=== PATIENT | male | born 1990 ===

== ENCOUNTER 2020-01-24 11:31 | Emergency (ER) | payer SELFPAY ==
[2020-01-24] MEDS ORDERED: TETANUS,DIPHTHERIA TOXOID ADULT 0.5 ML INJ IM ONE (14:44)
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
--- NOTE | 2020-01-24 15:11 | XRay Report ---
LEFT FOOT 3 VIEWS INDICATION / CLINICAL INFORMATION: Injury with left foot pain. COMPARISON: None available. FINDINGS: BONES / JOINT(S): There are acute comminuted fractures involving the majority of the third metatarsal shaft and the distal aspect of the second metatarsal shaft. The second metatarsal fracture probably extends into the metatarsal head laterally. The fracture fragments are mildly displaced. No dislocati on. No significant arthritis. SOFT TISSUES: There is associated soft tissue swelling involving the dorsum of the foot. ADDITIONAL FINDINGS: None. IMPRESSION: Acute fractures of the left second and third metatarsals. Signer Name: Yadiel Meza MD Signed: 01/24/2020 3:07 PM Workstation Name: [id number]
[2020-01-24] MEDS ORDERED: NEOMY 3.5 MG/BACIT 400 UNITS/POLY B 5000 UNITS/GM OINT PACKET TP ONE (17:20)
[2020-01-24 18:06] VITALS: BP 131/86
== END 2020-01-24 18:14 | disposition home or self-care (01) ==
LOC: ED 11:31
DX: M77.42 Metatarsalgia, left foot (principal); Z90.49 Acquired absence of other specified parts of digestive tract; Z98.890 Other specified postprocedural states; Z79.899 Other long term (current) drug therapy
CPT/HCPCS: 29515; 73630; 90471; 90714; 99283; A6250

== ENCOUNTER 2020-02-07 09:36 | Inpatient (IN) | payer OTHER ==
[2020-02-07] MEDS ORDERED: HYDROmorphone 1 MG/1 ML INJ IV STA (10:20)
[2020-02-07] MEDS ORDERED: SODIUM CHLORIDE 0.9% 1000 ML IV SOLN IV ONE (10:20)
[2020-02-07] MEDS ORDERED: VANCOMYCIN 1,750 MG in SODIUM CHLORIDE 0.9% 500 ML 500 ML IV ONE (10:20)
[2020-02-07] MEDS ORDERED: ACETAMINOPHEN 500 MG TAB PO ONE (10:23)
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
[2020-02-07] MEDS ORDERED: PIPERACIL/TAZOBACTA 4.5/NS 100 4.5 GM/100 ML VIAL IV SCH (11:00)
[2020-02-07] MEDS ORDERED: VANCOMYCIN PHARMACY TO DOSE IV SCH (11:00)
[2020-02-07 11:13] LABS: Hematocrit 46.6 % (35.5-45.6); Hemoglobin 15.8 gm/dl (11.8-15.2); Mean Corpuscular HGB Conc 34 % (32-34); Mean Corpuscular Volume 88 fl (84-94); Platelet Count 305 K/mm3 (140-440); Red Blood Count 5.31 M/mm3 (3.65-5.03); Red Cell Distribution Width 13.6 % (13.2-15.2)
[2020-02-07] MEDS ORDERED: HYDROmorphone 1 MG/1 ML INJ IV ONE ×2 (11:13→12:28)
[2020-02-07 11:23] LABS: INR 1.24 (0.87-1.13); Partial Thromboplastin Time 27.2 Sec. (24.2-36.6)
--- NOTE | 2020-02-07 11:26 | XRay Report ---
LEFT FOREARM 2 VIEW(S) INDICATION / CLINICAL INFORMATION: left arm pain swelling COMPARISON: None available. FINDINGS: BONES / JOINT(S): No acute fracture or subluxation. No significant arthritis. SOFT TISSUES: Generalized soft tissue swelling and edema of the distal forearm and posterior to the e lbow. ADDITIONAL FINDINGS: None. Signer Name: Oliver Casanova MD Signed: 02/07/2020 11:21 AM Workstation Name: [id number]
--- NOTE | 2020-02-07 11:27 | XRay Report ---
LEFT HUMERUS 2 VIEW(S) INDICATION / CLINICAL INFORMATION: left arm pain swelling COMPARISON: None available. FINDINGS: BONES / JOINT(S): No acute fracture or subluxation. No significant arthritis. SOFT TISSUES: Generalized soft tissue swelling and edema is noted of the upper arm extending to the l evel of the elbow. ADDITIONAL FINDINGS: None. Signer Name: Oliver Casanova MD Signed: 02/07/2020 11:22 AM Workstation Name: [id number]
--- NOTE | 2020-02-07 11:27 | XRay Report ---
CHEST 1 VIEW INDICATION / CLINICAL INFORMATION: sepsis tachycardia. COMPARISON: None available. FINDINGS: SUPPORT DEVICES: None. HEART / MEDIASTINUM: No significant abnormality. LUNGS / PLEURA: No significant pulmonary or pleural abnormality. No pneumothorax. ADDITIONAL FINDINGS: No significant additional findings. IMPRESSION: 1. No acute findings. Signer Name: Oliver Casanova MD Signed: 02/07/2020 11:23 AM Workstation Name: [id number]
[2020-02-07 11:30] LABS: Bacteria,Urine 2+ /HPF (Negative); Bilirubin,Urine NEG (Negative); Blood,Urine SM (Negative); Color,Urine Yellow (Yellow); Mucus,Urine FEW /HPF
[2020-02-07 11:37] LABS: Alanine Aminotransferase 48 units/L (7-56); Albumin 3.4 g/dL (3.9-5); BUN/Creatinine Ratio 16; Blood Urea Nitrogen 13 mg/dL (9-20); Hemolysis Index 21
[2020-02-07 12:46] LABS: Band Neutrophils # (Manual) 0.6 K/mm3; Basophils % (Manual) 0 % (0.0-1.8); Eosinophils % (Manual) 0 % (0.0-4.3); Total Cells Counted 100
[2020-02-07 12:47] LABS: Platelet Estimate Consistent w Auto; RBC Morphology Normal
[2020-02-07] MEDS ORDERED: ONDANSETRON 4 MG/2 ML INJ IV PRN (12:54)
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
[2020-02-07] MEDS: SODIUM CHLORIDE 0.9% 1000 ML 1,000 ML IV SCH ×2 (14:56→22:05)
[2020-02-07] MEDS: HYDROcodone/ACETAMINOPHEN 5-325 MG TAB PO PRN ×2 (15:05→22:05)
[2020-02-07] MEDS: PIPERACIL/TAZOBACTA 4.5/NS 100 4.5 GM/100 ML VIAL IV SCH ×2 (16:47→22:04)
[2020-02-07] MEDS: ACETAMINOPHEN 325 MG TAB PO PRN ×2 (16:59→22:06)
[2020-02-08] MEDS ORDERED: VANCOMYCIN 1,250 MG in SODIUM CHLORIDE 0.9% 250ML 250 ML IV SCH
[2020-02-08] MEDS: ACETAMINOPHEN 325 MG TAB PO PRN ×2 (05:31→22:15)
[2020-02-08] MEDS: HYDROcodone/ACETAMINOPHEN 5-325 MG TAB PO PRN ×3 (05:31→22:45)
[2020-02-08] MEDS: PIPERACIL/TAZOBACTA 4.5/NS 100 4.5 GM/100 ML VIAL IV SCH ×2 (05:31→11:50)
[2020-02-08 07:29] LABS: Basophils % (Auto) 0.1 % (0.0-1.8); Eosinophils % (Auto) 0.2 % (0.0-4.3); Hematocrit 42.2 % (35.5-45.6); Lymphocytes # (Auto) 0.7 K/mm3 (1.2-5.4); Lymphocytes % (Auto) 4.4 % (13.4-35.0); Mean Corpuscular HGB Conc 33 % (32-34); Mean Corpuscular Volume 89 fl (84-94); Monocytes % (Auto) 6.3 % (0.0-7.3); Platelet Count 266 K/mm3 (140-440); Red Blood Count 4.74 M/mm3 (3.65-5.03); Red Cell Distribution Width 13.5 % (13.2-15.2)
[2020-02-08 07:45] LABS: Blood Urea Nitrogen 9 mg/dL (9-20); Calcium 8.5 mg/dL (8.4-10.2); Hemolysis Index 5
[2020-02-08 07:49] LABS: BUN/Creatinine Ratio 15
[2020-02-08] MEDS: VANCOMYCIN/NS 1 GM/250 ML 1 GM/250 ML BAG IV SCH ×2 (09:17→18:21)
[2020-02-08] MEDS ORDERED: ENOXAPARIN 40 MG/0.4 ML INJ SUB-Q SCH (10:00)
[2020-02-08] MEDS: SODIUM CHLORIDE 0.9% 1000 ML 1,000 ML IV SCH ×2 (11:51→18:59)
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
--- NOTE | 2020-02-08 14:21 | Vascular Lab Report ---
DUPLEX DOPPLER UPPER EXTREMITY VENOUS, LEFT INDICATION / CLINICAL INFORMATION: DVT. Cellulitis, sepsis TECHNIQUE: Duplex doppler imaging was performed through the veins of the left upper extremity using venous compr ession and other maneuvers. COMPARISON: Left upper extremity CT 02/07/2020 FINDINGS: LEFT INTERNAL JUGULAR VEIN: Negative. LEFT SUBCLAVIAN VEIN: Negative. LEFT AXILLARY VEIN: Negative. LEFT BRACHIAL VEIN: Negative. LEFT FOREARM VEINS: Negative. LEFT BASILIC VEIN (SUPERFICIAL): Negative. ADDITIONAL FINDINGS: 2.7 x 2.1 cm heterogeneous hyorvascular lesion proximal left forearm suggestive for phlegmon. No abscess seen on CT. Diffuse subcutaneous edema within left upper extremity character istic for cellulitis. IMPRESSION: 1. No sonographic evidence for DVT. 2. Cellulitis left upper extremity with 2.7 cm phlegmon. No drainable abscess. Signer Name: Teja Arroyo MD Signed: 02/08/2020 2:16 PM Workstation Name: [id number]
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
[2020-02-08] MEDS: MORPHINE 4 MG/1 ML INJ IV PRN (18:21)
--- NOTE | 2020-02-08 19:26 | Consultation ---
History of Present Illness - Reason for Consult Consult date: 02/08/20 cellulitis left forearm - History of Present Illness 29 year old male with 5 day hx of increasing swelling and redness of left forearm, the patient was seen in the ER and had a WBC around 20 K, he had a CT of the LUE which demonstrated cellulitis of forearm but no abcess, no gas in tissues, subsequent duplex of arm revealed swelling and edema consistent with cellulitis but no discrete abcess but question of area of phlegom but nothing to drain. The patient was seen by me around 4pm today, but he had just eaten and was on lovenox, I made the patient NPO and held the lovenox. The left forearm is warm and swollen, there is no crepitance, there is no pain with passive extension of the fingers, the arm has a small I and D with gauze in the wound but no pus is draining. The patient has a normal vascular and neuro exam of the left forearm. He did have fever and is tachycardic. Past History Past Medical History: No medical history Social history: other (+marijuana use. Denies IV drug use) Medications and Allergies Allergies Allergy/AdvReac Type Severity Reaction Status Date / Time No Known Allergies Allergy Verified 01/24/20 14:45 Home Medications Medication Instructions Recorded Confirmed Last Taken Type Diclofenac Sodium 75 mg PO BID 02/07/20 02/07/20 02/06/20 12:00 History 75 mg Active Meds: Active Medications Acetaminophen (Tylenol) 650 mg PO Q4H PRN PRN Reason: Pain MILD(1-3)/Fever >100.5/JOHNSON Last Admin: 02/08/20 05:31 Dose: 650 mg Documented by: Hydrocodone Bitart/Acetaminophen ([place] 5/325) 2 each PO Q6H PRN PRN Reason: Pain, Moderate (4-6) Last Admin: 02/08/20 11:48 Dose: 2 each Documented by: Sodium Chloride (Nacl 0.9% 1000 Ml) 1,000 mls @ 125 mls/hr IV DIRECT JAKY Last Admin: 02/08/20 18:59 Dose: 125 mls/hr Documented by: Vancomycin HCl (Vancomycin/Ns 1 Gm/250 Ml) 1 gm in 250 mls @ 167.007 mls/hr IV Q8H JAKY Last Admin: 02/08/20 18:21 Dose: 167.007 mls/hr Documented by: Morphine Sulfate (Morphine) 2 mg IV Q4H PRN PRN Reason: Pain , Severe (7-10) Last Admin: 02/08/20 18:21 Dose: 2 mg Documented by: Ondansetron HCl (Zofran) 4 mg IV Q8H PRN PRN Reason: Nausea And Vomiting Sodium Chloride (Sodium Chloride Flush Syringe 10 Ml) 10 ml IV BID JAKY Last Admin: 02/08/20 09:17 Dose: 10 ml Documented by: Sodium Chloride (Sodium Chloride Flush Syringe 10 Ml) 10 ml IV PRN PRN PRN Reason: LINE FLUSH Review of Systems Constitutional: other (pain in his left forearm) Exam - Constitutional Vitals: Temp Pulse Resp BP Pulse Ox 99.8 F H 125 H 19 126/81 100 02/08/20 17:07 02/08/20 17:07 02/08/20 17:07 02/08/20 17:07 02/08/20 17:07 General appearance: Present: mild distress - EENT Eyes: Present: PERRL ENT: hearing intact, clear oral mucosa - Neck Neck: Present: supple, normal ROM - Respiratory Respiratory effort: normal - Cardiovascular Rhythm: other (sinus tach) - Extremities Extremities: no ischemia, pulses intact, abnormal (left forearm is swollen and tender, forearm is tense) Peripheral Pulses: within normal limits Results - Labs CBC & Chem 7: 02/08/20 06:59 02/08/20 06:59 Labs: Abnormal lab results 02/08/20 02/08/20 Range/Units 06:59 06:59 WBC 16.5 H (4.5-11.0) K/mm3 Lymph % (Auto) 4.4 L (13.4-35.0) % Lymph # (Auto) 0.7 L (1.2-5.4) K/mm3 [place] # (Auto) 1.0 H (0.0-0.8) K/mm3 Seg Neutrophils % 89.0 H (40.0-70.0) % Seg Neutrophils # 14.7 H (1.8-7.7) K/mm3 Sodium 136 L (137-145) mmol/L Creatinine 0.6 L (0.8-1.3) mg/dL Assessment and Plan severe cellulits left forearm, patient unfortunately was fed, on lovenox, both held and patient made NPO Need to elevate arm, iv antibiotics, INF DZ on board. I think the arm needs surgical drainage with intraop cultures, Ideally I would like Ortho input
--- NOTE | 2020-02-08 20:30 | Anesthesia Day of Surgery ---
Anesthesia Day of Surgery - Day of Surgery Patient Examined: Yes Patient H&P Reviewed: Yes Patient is NPO: No (full meal at 1400)
--- NOTE | 2020-02-08 20:30 | Anesthesia Consultation ---
Anesthesia Consult and Med Hx Date of service: 02/08/20 - Airway Anesthetic Teeth Evaluation: Good ROM Head & Neck: Adequate Mental/Hyoid Distance: Adequate Mallampati Class: Class II Intubation Access Assessment: Good - Pulmonary Exam CTA: Yes - Cardiac Exam Cardiac Exam: RRR - Pre-Operative Health Status ASA Pre-Surgery Classification: ASA2, Emergency Proposed Anesthetic Plan: General - Pulmonary Hx Asthma: Yes COPD: No Hx Pneumonia: No - Endocrine Hx End Stage Renal Disease: No - Other Systems Hx Cancer: No
[2020-02-08] MEDS ORDERED: SUCCINYLCHOLINE CHLORIDE 200 MG/10 ML INJ MDV ONE (20:44)
[2020-02-08] MEDS ORDERED: METOCLOPRAMIDE 10 MG/2 ML INJ ONE (20:44)
[2020-02-08] MEDS ORDERED: MIDAZOLAM 2 MG/2 ML INJ ONE (20:44)
[2020-02-08] MEDS ORDERED: ONDANSETRON 4 MG/2 ML INJ ONE (20:44)
[2020-02-08] MEDS ORDERED: fentaNYL 100 MCG/2 ML INJ ONE (20:45)
[2020-02-08] MEDS ORDERED: propofoL 200 MG/20 ML VIAL IV ONE (20:45)
[2020-02-08] MEDS ORDERED: KETOROLAC 30 MG/1 ML INJ ONE (21:00)
[2020-02-08] MEDS ORDERED: OXYCHLOROSENE 2 GM POWDER IR ONE (21:42)
[2020-02-08] MEDS ORDERED: HYDROGEN PEROXIDE 118 ML SOLUTION IRRIGATION ONE (21:48)
[2020-02-08] MEDS ORDERED: OXYCHLOROSENE IRRIGATION ONE (21:48)
[2020-02-08] MEDS ORDERED: SODIUM CHLORIDE 0.9% IRR 1,000 ML BOTTLE IR ONE (21:49)
[2020-02-08] MEDS ORDERED: HEPARIN 5,000 UNIT/1 ML VIAL SUB-Q SCH (22:00)
[2020-02-08] MEDS ORDERED: HYDROmorphone 1 MG/1 ML INJ ONE (22:05)
--- NOTE | 2020-02-08 22:06 | Procedure Note ---
Date of procedure: 02/08/20 Pre-op diagnosis: cellulitis left forearm Post-op diagnosis: other (abcess left forearm/ maico pus) Procedure: Incision and drainage left forearm abcess, Findings: left forearm abcess, 100 of maico pus, intraop deep bacterial cultures sent Anesthesia: SHYLA Surgeon: BABATUNDE CORTEZ Estimated blood loss: minimal Pathology: none Specimen disposition: to lab Condition: stable Disposition: floor
[2020-02-08] MEDS ORDERED: ACETAMINOPHEN 325 MG TAB ONE (22:13)
[2020-02-08] MEDS ORDERED: SODIUM CHLORIDE 0.9% 1000 ML 1,000 ML ONE (22:27)
[2020-02-08] MEDS ORDERED: HYDROcodone/ACETAMINOPHEN 5-325 MG TAB ONE (22:44)
--- NOTE | 2020-02-08 23:24 | Operative Report ---
PREOPERATIVE DIAGNOSIS: Cellulitis of the left forearm. POSTOPERATIVE DIAGNOSIS: Abscess of the left forearm, about 100 mL of maico pus was drained from the dorsal aspect of the proximal left forearm and deep intraoperative bacterial cultures were sent. OPERATIVE FINDINGS: Compatible with a left forearm abscess. ANESTHESIA: General. BLOOD LOSS: Minimal. PATHOLOGY: None. Cultures were sent to the lab. CONDITION: Stable. DISPOSITION: To the floor. DESCRIPTION OF PROCEDURE: After informed consent, the patient was brought into the operating room. He received IV antibiotics preoperatively and had compression stockings in place. He was induced under general anesthesia and then his left arm was sterilely prepped and draped on an arm board. After appropriate time-out, there was a previously placed incision which was opened by the wound nurse. I made the incision extending from that point proximally up to the elbow and carried down the incision sharply with a #15 scalpel. I dissected through the subcutaneous fat down to the underlying extensor compartment muscles. I placed my finger and gently probed the area and about 100-150 mL of just foul smelling, maico pus immediately returned. I used a Weitlaner retractor and I obtained better exposure. I did not go into the muscle compartment, but the abscess seemed to be well localized. I probed all the areas to make sure that I had completely drained the abscess that was collecting and there was no foreign body identified. I washed out the wound with normal saline and dilute hydrogen peroxide until clear. I established hemostasis with a point application with pickups and the Bovie. Then, I packed the wound open with a Kerlix roll soaked in Clorpactin. There was excellent hemostasis at the completion of the procedure. I covered it with some fluffs and then I used a 4-inch Hi wrap to secure the dressing in place. The patient's distal pulses were intact. The procedure was tolerated well. I did obtain deep intraoperative bacterial cultures which were sent to the lab. The sponge and needle count was correct x 2 at the completion of the procedure. JOB# [id number] ROSA/SCOTT
[2020-02-09] MEDS: VANCOMYCIN/NS 1 GM/250 ML 1 GM/250 ML BAG IV SCH ×2 (05:14→08:28)
[2020-02-09] MEDS: SODIUM CHLORIDE 0.9% 1000 ML 1,000 ML IV SCH (07:37)
--- NOTE | 2020-02-09 07:53 | Event Note ---
Date: 02/09/20 POD 1 s/p I and D of left forearm abcess, left forearm OK , no bleeding , probable MRSA, leave packing 24 hours, OK to remove dima bandage but leave packing in. antibiotics per INF DZ, good pulses, normal neuro exam left forearm and hand, continue to elevate extremity on pillows.
[2020-02-09] MEDS: MORPHINE 4 MG/1 ML INJ IV PRN (08:08)
[2020-02-09 11:41] LABS: Hematocrit 38.1 % (35.5-45.6); Hemoglobin 12.8 gm/dl (11.8-15.2); Mean Corpuscular HGB Conc 34 % (32-34); Mean Corpuscular Volume 88 fl (84-94); Platelet Count 297 K/mm3 (140-440); Red Blood Count 4.35 M/mm3 (3.65-5.03)
--- NOTE | 2020-02-09 11:46 | Progress Note ---
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 ONS intakes Anticipated Discharge Needs: Regular, ONS PRN Follow-Up By: 02/10/20 Additional Comments FU for intakes, ONS tolernance
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
[2020-02-09] MEDS: HYDROcodone/ACETAMINOPHEN 5-325 MG TAB PO PRN ×2 (12:24→18:06)
[2020-02-09 12:40] LABS: Basophils % (Manual) 0 % (0.0-1.8); Platelet Estimate Consistent w Auto; RBC Morphology Normal; Total Cells Counted 100
--- NOTE | 2020-02-09 14:02 | Vascular Lab Report ---
DUPLEX DOPPLER UPPER EXTREMITY ARTERIAL, LEFT INDICATION / CLINICAL INFORMATION: Left upper extremity swelling, possible pseudoaneurysm. TECHNIQUE: Arterial duplex examination of the left upper extremity performed using B-mode, color flow and spectr al Doppler assessment. FINDINGS: Expected peak systolic velocities and multiphasic waveforms are seen throughout the visualized arteri es of the left upper extremity. No pseudoaneurysm is seen. The included surrounding soft tissues are unremarkable. IMPRESSION: No pseudoaneurysm or other significant abnormality of the arteries of the left upper extremity. Signer Name: Gage Pathak MD Signed: 02/09/2020 1:58 PM Workstation Name: [id number]
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
[2020-02-10] MEDS: HYDROcodone/ACETAMINOPHEN 5-325 MG TAB PO PRN ×2 (00:17→06:02)
[2020-02-10 01:05] LABS: Alanine Aminotransferase 29 units/L (7-56); Albumin 2.9 g/dL (3.9-5); Blood Urea Nitrogen 12 mg/dL (9-20); Calcium 8.4 mg/dL (8.4-10.2); Hemolysis Index 4
[2020-02-10 01:15] LABS: BUN/Creatinine Ratio 24
[2020-02-10 06:00] LABS: Basophils % (Auto) 0.2 % (0.0-1.8); Eosinophils # (Auto) 0.1 K/mm3 (0.0-0.4); Eosinophils % (Auto) 1.6 % (0.0-4.3); Hematocrit 38.1 % (35.5-45.6); Lymphocytes # (Auto) 0.6 K/mm3 (1.2-5.4); Lymphocytes % (Auto) 8.4 % (13.4-35.0); Mean Corpuscular HGB Conc 34 % (32-34); Mean Corpuscular Volume 89 fl (84-94); Monocytes # (Auto) 0.6 K/mm3 (0.0-0.8); Monocytes % (Auto) 8.2 % (0.0-7.3); Platelet Count 337 K/mm3 (140-440)
--- NOTE | 2020-02-10 08:02 | Progress Note ---
Assessment and Plan Implement wet to dry dressing changes with 1/2 strength Dakin's solution, educate patient, Wound nurse on board. Antibiotics per INF DZ. Subjective Date of service: 02/10/20 Patient Reports: Positive: no new complaints Objective Vital Signs - 12hr 02/09/20 02/09/20 02/10/20 20:35 23:24 04:49 Temperature 99.1 F 97.8 F Pulse Rate 99 H 87 Respiratory 20 18 18 Rate Blood Pressure 114/78 121/77 O2 Sat by Pulse 98 99 Oximetry - General physical appearance no distress - Eyes PERRL, normal occular movement - ENT normal pinna, normal nares, normal mucosa, no hearing loss, no congestion - Neck no masses, no bruits, trachea midline, no lymphadectomy, no venous distension - Respiratory normal expansion, normal respiratory effort, clear to percussion, clear to auscultation - Abdomen soft, bowel sounds normal - Neurologic normal coordination, normal sensation - Musculoskeletal normal gait (left arm improved, dressing and packing removed, wound clean, granulating, less swelling in distal forearm and hand, no pain with finger extension, on evidence of compartment syndrome, pulses intact, neuro intact,), normal posture - Psychiatric oriented to time, oriented to person, oriented to place, speech is normal, memory intact - Labs 02/10/20 05:18 02/10/20 00:21 Diabetes panel 02/10/20 Range/Units 00:21 Sodium 139 (137-145) mmol/L Potassium 3.9 (3.6-5.0) mmol/L Chloride 102.6 (98-107) mmol/L Carbon Dioxide 26 (22-30) mmol/L BUN 12 (9-20) mg/dL Creatinine 0.5 L (0.8-1.3) mg/dL Glucose 87 (75-100) mg/dL Calcium 8.4 (8.4-10.2) mg/dL AST 24 (5-40) units/L ALT 29 (7-56) units/L Alkaline Phosphatase 159 H (35-129) units/L Total Protein 7.2 (6.3-8.2) g/dL Albumin 2.9 L (3.9-5) g/dL Calcium panel 02/10/20 Range/Units 00:21 Calcium 8.4 (8.4-10.2) mg/dL Albumin 2.9 L (3.9-5) g/dL Pituitary panel 02/10/20 Range/Units 00:21 Sodium 139 (137-145) mmol/L Potassium 3.9 (3.6-5.0) mmol/L Chloride 102.6 (98-107) mmol/L Carbon Dioxide 26 (22-30) mmol/L BUN 12 (9-20) mg/dL Creatinine 0.5 L (0.8-1.3) mg/dL Glucose 87 (75-100) mg/dL Calcium 8.4 (8.4-10.2) mg/dL Adrenal panel 02/10/20 Range/Units 00:21 Sodium 139 (137-145) mmol/L Potassium 3.9 (3.6-5.0) mmol/L Chloride 102.6 (98-107) mmol/L Carbon Dioxide 26 (22-30) mmol/L BUN 12 (9-20) mg/dL Creatinine 0.5 L (0.8-1.3) mg/dL Glucose 87 (75-100) mg/dL Calcium 8.4 (8.4-10.2) mg/dL Total Bilirubin 0.30 (0.1-1.2) mg/dL AST 24 (5-40) units/L ALT 29 (7-56) units/L Alkaline Phosphatase 159 H (35-129) units/L Total Protein 7.2 (6.3-8.2) g/dL Albumin 2.9 L (3.9-5) g/dL
[2020-02-10] MEDS: MORPHINE 4 MG/1 ML INJ IV PRN (10:12)
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
--- NOTE | 2020-02-10 12:49 | Vascular Lab Report ---
DUPLEX DOPPLER UPPER EXTREMITY VENOUS, LEFT INDICATION / CLINICAL INFORMATION: Swelling. TECHNIQUE: Duplex doppler imaging was performed through the veins of the left upper extremity using venous compr ession and other maneuvers. COMPARISON: None available. FINDINGS: LEFT INTERNAL JUGULAR VEIN: Negative. LEFT SUBCLAVIAN VEIN: Negative. LEFT AXILLARY VEIN: Negative. LEFT BRACHIAL VEIN: Negative. LEFT FOREARM VEINS: Negative. LEFT BASILIC VEIN (SUPERFICIAL): Negative. ADDITIONAL FINDINGS: None. IMPRESSION: 1. No sonographic evidence for DVT. Signer Name: Teja Arroyo MD Signed: 02/10/2020 12:44 PM Workstation Name: [id number]
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
[2020-02-10] MEDS ORDERED: SODIUM HYPOCHLORITE, DAKIN'S 1/2 STRENGTH (0.25%) 473 ML TOPICAL SOLN TP NR (15:00)
[2020-02-10] MEDS ORDERED: SODIUM HYPOCHLORITE, DAKIN'S 1/2 STRENGTH (0.25%) 473 ML TOPICAL SOLN TP ONE (15:00)
[2020-02-10 18:57] VITALS: BP 120/89
== END 2020-02-10 19:09 | disposition home health service (06) | DRG 872 ==
LOC: ED 09:36 → OBSVTOIN 12:40 → 3A 12:40
PROVIDERS: ADMIT Internal Medicine; ATTEND Internal Medicine
PROC: 0X970ZZ Drainage of Left Upper Extremity, Open Approach (ICD-10-PCS; principal; 2020-02-08)
DX: A41.9 Sepsis, unspecified organism (principal); L03.114 Cellulitis of left upper limb; E87.2 Acidosis; L02.414 Cutaneous abscess of left upper limb
CPT/HCPCS: 36415; 71045; 80048; 80053; 81001; 82140; 82550; 83036; 83735; 85007; 85025; 85610; 85730; 87040; 87075; 87076; 87086; 87116; 87186; 93005; 96372; 96374; G0378; A6260; J0330; J0690; J1170; J1650; J1885; J2250; J2270; J2405; J2543; J2704; J2765; J3010; J3370; J7030; J7040; J7050; Q9967